=== PATIENT | female | born 1970 | race Two or more races ===

== ENCOUNTER 2024-09-06 12:40 | Inpatient (IN) | payer OTHER ==
[2024-09-06] VITALS (9 sets, daily range): BP systolic 106–136; BP diastolic 57–81; PULSE 61–79; RESP 12–18; TEMP 98.2–98.6; O2SAT 100
[~2024-09-06] VITALS: Ht 165.1 cm; Wt 60.0 kg
[2024-09-06 14:32] LABS: ANION GAP 8 mmol/L (8-16); CALCIUM, TOTAL 8.8 mg/dL (8.8-10.5); CARBON DIOXIDE 23 mmol/L (22-29); CHLORIDE 107 mmol/L (98-107); CREATININE 0.69 mg/dL (0.60-1.30); GLOMERULAR FILTR. RATE CALC > 60 mL/min (>60); GLUCOSE,RANDOM 101 mg/dL (70-110); POTASSIUM 3.4 mmol/L (3.5-5.1); SODIUM SERUM 138 mmol/L (136-145); UREA NITROGEN, BLOOD 14 mg/dL (7-18)
[2024-09-06 14:37] LABS: TROPONIN I-HIGH SENSITIVITY 4 ng/L (<51)
[2024-09-06 14:39] LABS: BASOPHILS % (AUTO) 0.2 % (0.0-2.0); EOSINOPHILS % (AUTO) 0.4 % (1.0-6.0); LYMPHOCYTES # (AUTO) 0.6 K/uL (1.0-4.8); LYMPHOCYTES % (AUTO) 8.6 % (22.0-44.0); MEAN CORPUSCULAR HEMOGLOBIN 11.2 pg (26.0-34.0); MEAN CORPUSCULAR HGB CONC 24.8 G/dL (31.0-37.0); MEAN CORPUSCULAR VOLUME 45 fL (80-100); MONOCYTES # (AUTO) 0.4 K/uL (0.1-1.0); MONOCYTES % (AUTO) 6.3 % (2.0-9.0); NEUTROPHILS # (AUTO) 5.5 K/uL (1.8-7.7); NEUTROPHILS % (AUTO) 84.5 % (40.0-70.0); PLATELET COUNT (AUTO) 295 K/uL (150-450); RED BLOOD CELL COUNT(AUTO) 4.46 MIL/uL (4.00-5.20); RED CELL DISTRIBUTION WIDTH 26.1 % (11.5-14.5); WHITE BLOOD COUNT (AUTO) 6.6 K/uL (4.5-11.0)
[2024-09-06 14:40] LABS: B-TYPE NATRIURETIC PEPTIDE 105 pg/mL (0-100); HEMATOCRIT 20.1 % (36-46)
[2024-09-06 14:44] LABS: PROTHROMBIN TIME 11.5 SEC (9.4-11.6)
[2024-09-06 14:57] LABS: ALANINE AMINOTRANSFERASE 15 U/L (12-78); ALBUMIN 3.7 g/dL (3.4-5.0); ALKALINE PHOSPHATASE 85 U/L (46-116); ASPARTATE AMINOTRANSFERASE 20 U/L (15-37); BILIRUBIN,TOTAL 0.6 mg/dL (0.1-1.0); CREATINE KINASE, TOTAL ONLY 78 U/L (26-192); TOTAL PROTEIN, SERUM 7.9 g/dL (6.4-8.2)
[2024-09-06 16:28] LABS: PATHOLOGY REVIEW, DIFF YES; RBC MORPHOLOGY COMMENT ABNORMAL RBC MORPH
[2024-09-06] MEDS: PANTOPRAZOLE SODIUM 80 MG in SODIUM CHLORIDE 0.9% 100 ML IV SCH (17:35)
[2024-09-06 21:07] LABS: APPEARANCE,URINE HAZY (CLEAR); BILIRUBIN,URINE NEGATIVE (NEGATIVE); COLOR,URINE LIGHT YELLOW (YELLOW); GLUCOSE, URINE (UA) NEGATIVE (NEGATIVE); KETONES,URINE NEGATIVE (NEGATIVE); LEUKOCYTE ESTERASE ,URINE TRACE (NEGATIVE); NITRATE,URINE NEGATIVE (NEGATIVE); OCCULT BLOOD,URINE NEGATIVE (NEGATIVE); PROTEIN,URINE NEGATIVE (NEGATIVE); SPECIFIC GRAVITIY, URINE 1.007 (1.003-1.030); UROBILINOGEN,URINE <=1.0 mg/dL (<=1.0)
[2024-09-06 21:28] LABS: BACTERIA,URINE Many /HPF (None Seen); RBC,URINE None Seen /HPF (0-2)
[2024-09-06] MEDS ORDERED: SODIUM CHLORIDE 0.9% 1,000 ML ONE (23:49)
[2024-09-07] VITALS (13 sets, daily range): BP systolic 105–120; BP diastolic 50–73; PULSE 50–59; RESP 17–20; TEMP 97.9–98.5; O2SAT 96–100
[2024-09-07] MEDS ORDERED: SODIUM CHLORIDE 0.9% 500 ML IV ONE ×2 (06:25→11:39)
[2024-09-07] MEDS: POTASSIUM CHL 10 MEQ/WATER 50 ML IV PRN (06:41)
[2024-09-07 07:00] LABS: BASOPHILS % (AUTO) 0.8 % (0.0-2.0); EOSINOPHILS % (AUTO) 0.9 % (1.0-6.0); HEMATOCRIT 26.8 % (36-46); HEMOGLOBIN 7.8 g/dL (12.0-16.0); LYMPHOCYTES % (AUTO) 21.6 % (22.0-44.0); MEAN CORPUSCULAR HEMOGLOBIN 15.8 pg (26.0-34.0); MEAN CORPUSCULAR HGB CONC 29.1 G/dL (31.0-37.0); MEAN CORPUSCULAR VOLUME 54 fL (80-100); MONOCYTES # (AUTO) 0.4 K/uL (0.1-1.0); MONOCYTES % (AUTO) 8.7 % (2.0-9.0); NEUTROPHILS # (AUTO) 3.2 K/uL (1.8-7.7); RED BLOOD CELL COUNT(AUTO) 4.93 MIL/uL (4.00-5.20); WHITE BLOOD COUNT (AUTO) 4.7 K/uL (4.5-11.0)
[2024-09-07 08:12] LABS: RBC MORPHOLOGY COMMENT DIMORPHIC RBC
[2024-09-07 08:15] LABS: PLATELET COUNT (AUTO) 239 K/uL (150-450)
[2024-09-07] MEDS ORDERED: SODIUM CHLORIDE 0.9% 1,000 ML ONE (09:34)
[2024-09-07] MEDS ORDERED: PROPOFOL 1% 20 ML VIAL IVP ONE (12:00)
[2024-09-07] MEDS ORDERED: LIDOCAINE/PF 2% 5 ML VIAL IM ONE (12:00)
[2024-09-07] MEDS: CefTRIAXone 1 GM/DEXTROSE 50 ML IV SCH (16:29)
[2024-09-07] MEDS: PEG 3350/NA SULF,BICARB,CL/KCL 4000 ML SOLUTION PO ONE (17:32)
[2024-09-08] VITALS (7 sets, daily range): BP systolic 101–120; BP diastolic 52–72; PULSE 51–64; RESP 15–18; TEMP 98–98.5; O2SAT 95–99
[2024-09-08 08:08] LABS: BASOPHILS % (AUTO) 0.3 % (0.0-2.0); EOSINOPHILS % (AUTO) 1.6 % (1.0-6.0); HEMATOCRIT 25.6 % (36-46); HEMOGLOBIN 7.3 g/dL (12.0-16.0); LYMPHOCYTES % (AUTO) 37.1 % (22.0-44.0); MEAN CORPUSCULAR HEMOGLOBIN 15.8 pg (26.0-34.0); MEAN CORPUSCULAR HGB CONC 28.6 G/dL (31.0-37.0); MEAN CORPUSCULAR VOLUME 55 fL (80-100); MONOCYTES # (AUTO) 0.4 K/uL (0.1-1.0); MONOCYTES % (AUTO) 6.8 % (2.0-9.0); NEUTROPHILS # (AUTO) 2.9 K/uL (1.8-7.7); NEUTROPHILS % (AUTO) 54.2 % (40.0-70.0); PLATELET COUNT (AUTO) 242 K/uL (150-450); RED BLOOD CELL COUNT(AUTO) 4.65 MIL/uL (4.00-5.20); RED CELL DISTRIBUTION WIDTH 40.4 % (11.5-14.5); WHITE BLOOD COUNT (AUTO) 5.3 K/uL (4.5-11.0)
[2024-09-08] MEDS ORDERED: SODIUM CHLORIDE 0.9% 1,000 ML ONE (08:24)
[2024-09-08 08:41] LABS: ANION GAP 8 mmol/L (8-16); CALCIUM, TOTAL 8.2 mg/dL (8.8-10.5); CARBON DIOXIDE 25 mmol/L (22-29); CHLORIDE 109 mmol/L (98-107); CREATININE 0.62 mg/dL (0.60-1.30); GLOMERULAR FILTR. RATE CALC > 60 mL/min (>60); GLUCOSE,RANDOM 75 mg/dL (70-110); POTASSIUM 3.2 mmol/L (3.5-5.1); SODIUM SERUM 142 mmol/L (136-145); UREA NITROGEN, BLOOD 10 mg/dL (7-18)
[2024-09-08 10:52] LABS: RBC MORPHOLOGY COMMENT DIMORPHIC RBC
[2024-09-08] MEDS: SODIUM CHLORIDE 0.9% 1,000 ML IV ONE (11:43)
[2024-09-08] MEDS: POTASSIUM CHLORIDE 20 MEQ ER TABLET PO PRN (14:03)
[2024-09-08] MEDS: HYDROCORTISONE 2.5% 30 GM CREAM TP SCH (16:35)
[2024-09-09] MEDS ORDERED: SODIUM CHLORIDE 0.9% 100 ML ONE (00:34)
[2024-09-09] MEDS ORDERED: IOHEXOL 350 MG/ML 100 ML VIAL ONE (00:34)
[2024-09-09] MEDS ORDERED: PROPOFOL 1% 20 ML VIAL IVP ONE (02:26)
[2024-09-09] MEDS ORDERED: LIDOCAINE/PF 2% 5 ML VIAL IM ONE (02:26)
[2024-09-09 05:42] VITALS: BP 99/55; PULSE 51; RESP 18; TEMP 98.5; O2SAT 99
[2024-09-09 06:48] LABS: ANION GAP 8 mmol/L (8-16); CALCIUM, TOTAL 8.5 mg/dL (8.8-10.5); CARBON DIOXIDE 24 mmol/L (22-29); CHLORIDE 108 mmol/L (98-107); CREATININE 0.69 mg/dL (0.60-1.30); GLOMERULAR FILTR. RATE CALC > 60 mL/min (>60); GLUCOSE,RANDOM 82 mg/dL (70-110); POTASSIUM 3.6 mmol/L (3.5-5.1); SODIUM SERUM 140 mmol/L (136-145); UREA NITROGEN, BLOOD 13 mg/dL (7-18)
[2024-09-09 07:10] VITALS: BP 96/62; PULSE 55; RESP 16; TEMP 98.2; O2SAT 100
[2024-09-09 07:26] LABS: HEMATOCRIT 25.9 % (36-46); HEMOGLOBIN 7.3 g/dL (12.0-16.0); MEAN CORPUSCULAR HEMOGLOBIN 15.5 pg (26.0-34.0); MEAN CORPUSCULAR HGB CONC 28.1 G/dL (31.0-37.0); MEAN CORPUSCULAR VOLUME 55 fL (80-100); PLATELET COUNT (AUTO) 204 K/uL (150-450); RED CELL DISTRIBUTION WIDTH 41.3 % (11.5-14.5); WHITE BLOOD COUNT (AUTO) 4.8 K/uL (4.5-11.0)
[2024-09-09 08:14] LABS: BAND NEUTROPHILS % (MANUAL) 3 % (0-5); EOSINOPHILS % (MANUAL) 2 % (1-6); LYMPHOCYTES % (MANUAL) 39 % (22-44); MONOCYTES % (MANUAL) 7 % (2-9); RBC MORPHOLOGY COMMENT DIMORPHIC RBC; SEGMENTED NEUTROPHILS % 49 % (40-70); TOTAL CELLS COUNTED 100
[2024-09-09 11:36] LABS: RETICULOCYTE % (AUTO) 1.6 % (0.5-2.3)
[2024-09-09 11:37] VITALS: BP 116/57; PULSE 56; RESP 15; TEMP 98.3; O2SAT 99
[2024-09-09 15:53] VITALS: BP 126/72; PULSE 58; RESP 17; TEMP 98; O2SAT 98
[2024-09-09 20:41] VITALS: BP 114/73; PULSE 57; RESP 18; TEMP 97.8; O2SAT 100
[2024-09-09 21:05] LABS: % IRON SATURATION 5.5 % (22-44)
[2024-09-10 04:45] VITALS: BP 100/58; PULSE 55; RESP 18; TEMP 98; O2SAT 98
[2024-09-10 07:37] LABS: HEMATOCRIT 25.9 % (36-46); HEMOGLOBIN 7.4 g/dL (12.0-16.0); MEAN CORPUSCULAR HEMOGLOBIN 15.7 pg (26.0-34.0); MEAN CORPUSCULAR HGB CONC 28.5 G/dL (31.0-37.0); MEAN CORPUSCULAR VOLUME 55 fL (80-100); PLATELET COUNT (AUTO) 219 K/uL (150-450); RED CELL DISTRIBUTION WIDTH 41.9 % (11.5-14.5); WHITE BLOOD COUNT (AUTO) 3.4 K/uL (4.5-11.0)
[2024-09-10 07:52] LABS: ANION GAP 6 mmol/L (8-16); CALCIUM, TOTAL 8.5 mg/dL (8.8-10.5); CARBON DIOXIDE 26 mmol/L (22-29); CHLORIDE 107 mmol/L (98-107); CREATININE 0.67 mg/dL (0.60-1.30); GLOMERULAR FILTR. RATE CALC > 60 mL/min (>60); GLUCOSE,RANDOM 89 mg/dL (70-110); POTASSIUM 3.3 mmol/L (3.5-5.1); SODIUM SERUM 139 mmol/L (136-145); UREA NITROGEN, BLOOD 11 mg/dL (7-18)
[2024-09-10 08:22] LABS: BAND NEUTROPHILS % (MANUAL) 2 % (0-5); EOSINOPHILS % (MANUAL) 3 % (1-6); LYMPHOCYTES % (MANUAL) 40 % (22-44); MONOCYTES % (MANUAL) 6 % (2-9); SEGMENTED NEUTROPHILS % 49 % (40-70); TOTAL CELLS COUNTED 100
[2024-09-10 08:26] LABS: RBC MORPHOLOGY COMMENT DIMORPHIC
[2024-09-10] MEDS: PANTOPRAZOLE SODIUM 40 MG/VIAL IVP SCH (08:40)
[2024-09-10 08:47] VITALS: BP 115/57; PULSE 63; RESP 19; TEMP 97.9; O2SAT 100
[2024-09-10] MEDS ORDERED: HYDR30CR3 TP (14:01)
[2024-09-10] MEDS ORDERED: CEPH-558 PO (14:01)
[2024-09-10 15:39] VITALS: BP 117/66; PULSE 75; RESP 18; TEMP 98.2; O2SAT 95
== END 2024-09-10 16:30 | disposition home or self-care (01) | DRG 391 ==
LOC: EDBD 12:40 → EMS 12:40 → EDH 18:36 → 5S 23:20 → 4E 09-09 14:50
PROVIDERS: ADMIT Internal Medicine; ATTEND Internal Medicine
PROC: 30233N1 Transfusion of Nonautologous Red Blood Cells into Peripheral Vein, Percutaneous Approach (ICD-10-PCS; 2024-09-06)
PROC: 0DB78ZX Excision of Stomach, Pylorus, Via Natural or Artificial Opening Endoscopic, Diagnostic (ICD-10-PCS; principal; 2024-09-07 15:15)
PROC: 0DJD8ZZ Inspection of Lower Intestinal Tract, Via Natural or Artificial Opening Endoscopic (ICD-10-PCS; 2024-09-08)
DX: K29.70 Gastritis, unspecified, without bleeding (principal); E43 Unspecified severe protein-calorie malnutrition; K92.1 Melena; N39.0 Urinary tract infection, site not specified; K64.8 Other hemorrhoids; D64.9 Anemia, unspecified; E87.6 Hypokalemia; D50.0 Iron deficiency anemia secondary to blood loss (chronic); Z68.22 Body mass index [BMI] 22.0-22.9, adult
CPT/HCPCS: 71045; 74177; 80048; 80053; 81001; 82550; 83540; 83550; 83880; 84132; 84484; 85025; 85045; 85610; 85730; 86850; 86900; 86901; 86923; 87077; 87086; 87186; 88305; 93005; 99291; C9113; G0378; J0696; J2704; J3480; J3490; J7030; J7040; J7050; P9016; 36415-L1; 36415-TC; J2471; Z7610